=== PATIENT | male | born 1980 | race Caucasian/White ===

== ENCOUNTER 2020-10-21 20:11 | Emergency (ER) | payer BC, SELFPAY | END 2020-10-22 01:00 | disposition home or self-care (01) | LOC: ER1 20:11 | DX: I10 Essential (primary) hypertension (principal); F41.9 Anxiety disorder, unspecified; E78.5 Hyperlipidemia, unspecified; K21.9 Gastro-esophageal reflux disease without esophagitis | CPT/HCPCS: 99283 ==